=== PATIENT | male | born 1985 | race Hispanic/Latino ===

== ENCOUNTER → 2022-08-22 | Outpatient (CLI) | LOC: M SOG 07:57 | PROVIDERS: ATTEND Orthopaedic Surgery Hand Surgery | DX: M79.641 Pain in right hand (principal); M79.642 Pain in left hand ==

== ENCOUNTER 2022-09-21 10:02 | Emergency (ER) | payer OTHER ==
[~2022-09-21] VITALS: Ht 167.6 cm; Wt 78.5 kg
[2022-09-21] MEDS ORDERED: KETOROLAC TROMETHAMINE 10 MG TAB PO ONE (11:30)
[2022-09-21 12:11] VITALS: BP 140/80
== END 2022-09-21 12:15 | disposition home or self-care (01) ==
LOC: M ED 10:02
DX: S00.91XA Abrasion of unspecified part of head, initial encounter (principal); S06.0X1A Concussion with loss of consciousness of 30 minutes or less, initial encounter; W00.9XXA Unspecified fall due to ice and snow, initial encounter; Y99.1 Military activity